=== PATIENT | male | born 1990 | race Caucasian/White ===

== ENCOUNTER 2018-01-08 06:39 | Emergency (ER) | payer SELFPAY ==
[~2018-01-08] VITALS: Ht 175.3 cm; Wt 93.8 kg
[2018-01-08 06:42] VITALS: BP 117/74
== END 2018-01-08 08:30 | disposition home or self-care (01) ==
LOC: ED 08:24
DX: J20.8 Acute bronchitis due to other specified organisms (principal)
CPT/HCPCS: 71046; 93005; 99284